=== PATIENT | female | born 1995 | race Two or more races ===

== ENCOUNTER 2018-08-02 08:16 | Emergency (ER) | payer OTHER ==
[~2018-08-02] VITALS: Ht 149.9 cm; Wt 86.2 kg
[2018-08-02 10:05] VITALS: BP 137/71
[2018-08-02 10:12] LABS: BILIRUBIN,URINE NEGATIVE (NEG); CLARITY,URINE CLOUDY; COLOR,URINE YELLOW; NITRITE,URINE NEGATIVE (NEG); PH,URINE 6.5; PROTEIN,URINE 100 mg/dL (NEG-TRACE); UROBILINOGEN,URINE 0.2 mg/dL (0.2 mg/dL)
[2018-08-02 10:24] LABS: BACTERIA,URINE MODERATE /HPF (0-FEW); SQUAMOUS EPITHELIAL CELL,UR OCC /LPF
[2018-08-02] MEDS ORDERED: SULF1TAB24 PO (10:33)
--- NOTE | 2018-08-02 10:35 | PHYS DOC ---
Past Medical History Past Medical History: No Pertinent History Past Surgical History: No Surgical History Alcohol Use: Rarely Drug Use: None Adult General Chief Complaint Chief Complaint: BLOOD IN URINE HPI HPI Patient is a 23 year old female who presents with urgency frequency and burning with urination that started 3 days ago. She states that she had mild flank pain that started today. She denies fever, nausea or vomiting. She denies possibility of . Review of Systems Review of Systems Constitutional: Denies fever or chills [] Eyes: Denies change in visual acuity, redness, or eye pain [] HENT: Denies nasal congestion or sore throat [] Respiratory: Denies cough or shortness of breath [] Cardiovascular: No additional information not addressed in HPI [] GI: Denies abdominal pain, nausea, vomiting, bloody stools or diarrhea [] : See history of present illness Musculoskeletal: Denies back pain or joint pain [] Integument: Denies rash or skin lesions [] Neurologic: Denies headache, focal weakness or sensory changes [] Endocrine: Denies polyuria or polydipsia [] All other systems were reviewed and found to be within normal limits, except as documented in this note. Allergies Allergies Allergies Coded Allergies Type Severity Reaction Last Updated Verified No Known Drug Allergies 08/02/18 No Physical Exam Physical Exam Constitutional: Well developed, well nourished, no acute distress, non-toxic appearance. [] Cardiovascular:Heart rate regular rhythm, no murmur [] Lungs & Thorax: Bilateral breath sounds clear to auscultation [] Abdomen: Bowel sounds normal, soft, mild suprapubic tenderness, no masses, no pulsatile masses. [] Skin: Warm, dry, no erythema, no rash. [] Back: No tenderness, mild CVA tenderness to right. [] Extremities: No tenderness, no cyanosis, no clubbing, ROM intact, no edema. [] Neurologic: Alert and oriented X 3, normal motor function, normal sensory function, no focal deficits noted. [] Psychologic: Affect normal, judgement normal, mood normal. [] Current Patient Data Vital Signs Vital Signs Date Time Temp Pulse Resp B/P (MAP) Pulse Ox O2 Delivery O2 Flow Rate FiO2 08/02/18 10:05 98.7 74 16 137/71 (93) 99 98.7 08/02/18 09:03 Room Air Lab Values Laboratory Tests Test 08/02/18 10:00 Urine Color Yellow Urine Clarity Cloudy Urine pH 6.5 Urine Specific [place] 1.015 Urine Protein 100 mg/dL (NEG-TRACE) Urine Glucose (UA) Negative mg/dL (NEG) Urine Ketones (Stick) Negative mg/dL (NEG) Urine Blood Large (NEG) Urine Nitrite Negative (NEG) Urine Bilirubin Negative (NEG) Urine Urobilinogen Dipstick 0.2 mg/dL (0.2 mg/dL) Urine Leukocyte Esterase Large (NEG) Urine RBC 6-10 /HPF (0-2) Urine WBC 11-20 /HPF (0-4) Urine Squamous Epithelial Cells Occ /LPF Urine Bacteria Moderate /HPF (0-FEW) EKG EKG [] Radiology/Procedures Radiology/Procedures [] Course & Med Decision Making Course & Med Decision Making Pertinent Labs and Imaging studies reviewed. (See chart for details) [] Staff Physician Addendum: I was working in the ER during the course of this patient's visit. I was available for consultation as needed, but I was not directly involved in the care of this patient. Dragon Disclaimer Dragon Disclaimer This electronic medical record was generated, in whole or in part, using a voice recognition dictation system. Departure Departure Impression: Primary Impression: UTI (urinary tract infection) Disposition: 01 HOME, SELF-CARE Condition: STABLE Referrals: NO PCP (PCP) Patient Instructions: Urinary Tract Infection Additional Instructions: The antibiotic as directed. Follow-up with your primary care provider for urine recheck in one week. She may take Tylenol or ibuprofen for pain. If worsening return to the emergency department. Scripts Mth/Me Blue/Sod Phos/Phen/Hyos (URIBEL CAPSULE) 1 Each Capsule 1 EACH PO BID for UTI, #14 CAP Prov: ABIGAIL GERMAN APRN 08/02/18 Sulfamethoxazole/Trimethoprim (BACTRIM DS TABLET) 1 Each Tablet 1 TAB PO BID for UTI, #14 TAB Prov: ABIGAIL GERMAN APRN 08/02/18 ABIGAIL GERMAN APRN Aug 02, 2018 10:34 ISA DILL MD Aug 03, 2018 12:40
[2018-08-02] MEDS ORDERED: MTH/1CAP PO (10:41)
== END 2018-08-02 10:47 | disposition home or self-care (01) ==
LOC: ER 08:16
DX: N39.0 Urinary tract infection, site not specified (principal)
CPT/HCPCS: 81001; 87086; 87186; 99283